=== PATIENT | female | born 1960 | race Two or more races ===

== ENCOUNTER 2018-02-12 14:06 | Outpatient (CLI) | payer OTHER ==
[~2018-02-12 14:06] MED LIST: DURICEF 500 MG CAPSULE PO; TRAM1TAB PO
== END 2018-02-12 14:10 | disposition home or self-care (01) ==
LOC: LAB 14:06
DX: D69.49 Other primary thrombocytopenia (principal); D51.3 Other dietary vitamin B12 deficiency anemia; E78.2 Mixed hyperlipidemia; E03.8 Other specified hypothyroidism; M81.0 Age-related osteoporosis without current pathological fracture; I10 Essential (primary) hypertension

== ENCOUNTER 2018-06-29 06:28 | Outpatient (CLI) | payer OTHER | END 2018-06-29 06:49 | disposition home or self-care (01) | LOC: LAB 06:28 | DX: D69.49 Other primary thrombocytopenia (principal); D51.1 Vitamin B12 deficiency anemia due to selective vitamin B12 malabsorption with proteinuria; E06.3 Autoimmune thyroiditis; M81.0 Age-related osteoporosis without current pathological fracture; E78.2 Mixed hyperlipidemia; E03.8 Other specified hypothyroidism; I10 Essential (primary) hypertension; D50.8 Other iron deficiency anemias; D51.8 Other vitamin B12 deficiency anemias ==

== ENCOUNTER 2018-09-20 06:40 | Outpatient (CLI) | payer OTHER | END 2018-09-20 06:45 | disposition home or self-care (01) | LOC: LAB 06:40 | DX: D69.49 Other primary thrombocytopenia (principal); D51.1 Vitamin B12 deficiency anemia due to selective vitamin B12 malabsorption with proteinuria; D51.3 Other dietary vitamin B12 deficiency anemia; E06.3 Autoimmune thyroiditis; M81.0 Age-related osteoporosis without current pathological fracture; E78.2 Mixed hyperlipidemia; E03.8 Other specified hypothyroidism; I10 Essential (primary) hypertension ==

== ENCOUNTER 2020-10-19 08:31 | Outpatient (CLI) | payer OTHER | END 2020-10-19 10:03 | disposition home or self-care (01) | LOC: SONOGRAMA 08:31 | PROVIDERS: ATTEND Pathology Anatomic Pathology & Clinical Pathology | DX: D11.0 Benign neoplasm of parotid gland (principal) ==

== ENCOUNTER 2020-11-11 06:56 | Outpatient (CLI) | payer OTHER | END 2020-11-11 07:06 | disposition home or self-care (01) | LOC: LAB 06:56 | PROVIDERS: ATTEND Internal Medicine Hematology & Oncology | DX: D11.0 Benign neoplasm of parotid gland (principal); D50.8 Other iron deficiency anemias; I10 Essential (primary) hypertension; R74.02 Elevation of levels of lactic acid dehydrogenase [LDH]; K76.89 Other specified diseases of liver; D68.8 Other specified coagulation defects; C85.11 Unspecified B-cell lymphoma, lymph nodes of head, face, and neck; D69.49 Other primary thrombocytopenia; D51.1 Vitamin B12 deficiency anemia due to selective vitamin B12 malabsorption with proteinuria; D51.3 Other dietary vitamin B12 deficiency anemia; E06.3 Autoimmune thyroiditis; M81.0 Age-related osteoporosis without current pathological fracture; E78.2 Mixed hyperlipidemia; E03.8 Other specified hypothyroidism; H60.311 Diffuse otitis externa, right ear; H66.91 Otitis media, unspecified, right ear ==

== ENCOUNTER 2021-01-14 05:15 | Day surgery (SDC) | payer OTHER ==
[~2021-01-14 05:15] MED LIST changes: +ALTACE5 MG PO; +LIPITOR40 MG PO; +SYNTHROID88 MCG PO
== END 2021-01-14 13:30 | disposition home or self-care (01) ==
LOC: CIR.AMB 05:15
PROVIDERS: ATTEND Specialist
DX: C85.91 Non-Hodgkin lymphoma, unspecified, lymph nodes of head, face, and neck (principal); Z20.822 Contact with and (suspected) exposure to COVID-19
CPT/HCPCS: 36561; C1751

== ENCOUNTER 2021-06-05 07:15 | Outpatient (CLI) | payer OTHER | END 2021-06-05 07:22 | disposition home or self-care (01) | LOC: LAB 07:15 | PROVIDERS: ATTEND Internal Medicine Hematology & Oncology | DX: D50.8 Other iron deficiency anemias (principal); I10 Essential (primary) hypertension ==

== ENCOUNTER 2023-03-20 06:07 | Day surgery (SDC) | payer OTHER | END 2023-03-20 11:45 | disposition home or self-care (01) | LOC: AMB-ENDOS 06:07 | PROVIDERS: ATTEND Internal Medicine Gastroenterology | DX: D12.3 Benign neoplasm of transverse colon (principal); K64.8 Other hemorrhoids; Z20.822 Contact with and (suspected) exposure to COVID-19 ==

== ENCOUNTER 2024-04-03 09:45 | Outpatient (CLI) | payer OTHER ==
[~2024-04-03 09:45] MED LIST changes: +ADULT LOW DOSE81 M1; +CRESTOR40 MG; +TOPROL XL25 M1
[2024-04-03 11:03] LABS: HEMATOCRIT 40.3 % (36.0-45.00); MEAN CELL VOLUME 92.4 fL (80.00-100.00); MEAN CORPUSCULAR HEMOGLOBIN 32.1 pg (27.00-32.0); MEAN CORPUSCULAR HGB CONC 34.7 g/dl (32.0-36.0); RED BLOOD COUNT 4.36 M/uL (4.00-6.00); RED CELL DISTRIBUTION WIDTH 13.4 % (11.5-14.5)
[2024-04-03 11:04] LABS: PLATELET COUNT 115 K/uL (150-450)
[2024-04-03 11:43] LABS: % SATURACION 32.1 % (15-50); ALBUMIN 4.3 gm/dL (3.4-5.0); BILIRUBIN TOTAL 1.26 mg/dL (0.3-1.2); CALCIUM 9.6 mg/dL (8.5-10.1); CREATININE SERUM 0.63 mg/dL (0.55-1.02); GFR 94.84; GLOBULINA 2.5 G/DL (2.4-3.5); POTASSIUM 3.9 mEq/L (3.5-5.1); TOTAL PROTEIN 6.8 gm/dL (6.4-8.2)
[2024-04-04 12:27] LABS: FOLIC ACID > 20.00 ng/ml (4.78-20)
[2024-04-05 12:06] LABS: CA 125 5.4 U/mL (0.0-38.1); CA 15-3 24.8 U/mL (0.0-25.0)
== END 2024-04-03 09:51 | disposition home or self-care (01) ==
LOC: LAB 09:45
PROVIDERS: ATTEND Internal Medicine Hematology & Oncology
DX: C85.11 Unspecified B-cell lymphoma, lymph nodes of head, face, and neck (principal); D69.49 Other primary thrombocytopenia; D51.1 Vitamin B12 deficiency anemia due to selective vitamin B12 malabsorption with proteinuria; D51.3 Other dietary vitamin B12 deficiency anemia; E06.3 Autoimmune thyroiditis; M81.0 Age-related osteoporosis without current pathological fracture; E78.2 Mixed hyperlipidemia; E03.8 Other specified hypothyroidism; I10 Essential (primary) hypertension; H60.311 Diffuse otitis externa, right ear; H66.91 Otitis media, unspecified, right ear; D11.0 Benign neoplasm of parotid gland; Z86.16 Personal history of COVID-19; D50.8 Other iron deficiency anemias; R74.02 Elevation of levels of lactic acid dehydrogenase [LDH]; K76.89 Other specified diseases of liver; C50.919 Malignant neoplasm of unspecified site of unspecified female breast; C56.9 Malignant neoplasm of unspecified ovary; R97.8 Other abnormal tumor markers

== ENCOUNTER 2024-10-03 09:53 | Outpatient (CLI) | payer OTHER ==
[2024-10-03 11:17] LABS: HEMATOCRIT 41.5 % (36.0-45.00); HEMOGLOBIN 13.8 g/dL (12.0-15.00); MEAN CELL VOLUME 93.4 fL (80.00-100.00); MEAN CORPUSCULAR HEMOGLOBIN 31.1 pg (27.00-32.0); MEAN CORPUSCULAR HGB CONC 33.3 g/dl (32.0-36.0); RED BLOOD COUNT 4.44 M/uL (4.00-6.00); RED CELL DISTRIBUTION WIDTH 12.2 % (11.5-14.5)
[2024-10-03 11:23] LABS: PLATELET COUNT 111 K/uL (150-450)
[2024-10-03 12:07] LABS: % SATURACION 32.3 % (15-50); BILIRUBIN TOTAL 1.13 mg/dL (0.3-1.2); CALCIUM 9.1 mg/dL (8.5-10.1); CREATININE SERUM 0.54 mg/dL (0.55-1.02); FERRITIN 139.8 NG/ML (8-252); GFR 112.95; GLOBULINA 2.7 G/DL (2.4-3.5); POTASSIUM 3.58 mEq/L (3.5-5.1); TOTAL PROTEIN 6.7 gm/dL (6.4-8.2)
[2024-10-03 12:09] LABS: URIC ACID 2.7 mg/dL (2.5-7.5)
[2024-10-03 13:16] LABS: FOLIC ACID > 20.00 ng/ml (4.78-20)
[2024-10-03 14:03] LABS: MANUAL PLATELET COUNT 164
[2024-10-03 14:04] LABS: PLATELET ESTIMATE NORMAL (NORMAL)
[2024-10-04 10:09] LABS: CA 125 5.8 U/mL (0.0-38.1); CA 15-3 22.2 U/mL (0.0-25.0)
== END 2024-10-03 09:54 | disposition home or self-care (01) ==
LOC: LAB 09:53
PROVIDERS: ATTEND Internal Medicine Hematology & Oncology
DX: Z12.11 Encounter for screening for malignant neoplasm of colon (principal); M25.30 Other instability, unspecified joint; D50.8 Other iron deficiency anemias; R79.9 Abnormal finding of blood chemistry, unspecified; I10 Essential (primary) hypertension; R74.02 Elevation of levels of lactic acid dehydrogenase [LDH]; K76.89 Other specified diseases of liver; E55.9 Vitamin D deficiency, unspecified; C50.919 Malignant neoplasm of unspecified site of unspecified female breast; R97.8 Other abnormal tumor markers; C56.9 Malignant neoplasm of unspecified ovary; R97.1 Elevated cancer antigen 125 [CA 125]; R97.0 Elevated carcinoembryonic antigen [CEA]; C85.11 Unspecified B-cell lymphoma, lymph nodes of head, face, and neck; D69.49 Other primary thrombocytopenia; D51.1 Vitamin B12 deficiency anemia due to selective vitamin B12 malabsorption with proteinuria; D51.3 Other dietary vitamin B12 deficiency anemia; E06.3 Autoimmune thyroiditis; M81.0 Age-related osteoporosis without current pathological fracture; E78.2 Mixed hyperlipidemia; E03.8 Other specified hypothyroidism; H60.311 Diffuse otitis externa, right ear; H66.91 Otitis media, unspecified, right ear; D11.0 Benign neoplasm of parotid gland; Z86.16 Personal history of COVID-19

== ENCOUNTER → 2024-10-04 12:05 | Outpatient (CLI) | payer OTHER ==
[2024-10-04 13:19] LABS: ob POSITIVE (NEGATIVE)
== END | disposition home or self-care (01) ==
LOC: LAB 12:05
PROVIDERS: ATTEND General Practice
DX: M25.30 Other instability, unspecified joint (principal); Z12.11 Encounter for screening for malignant neoplasm of colon

== ENCOUNTER 2025-04-10 09:26 | Outpatient (CLI) | payer OTHER ==
[2025-04-10 10:13] LABS: BASO % 0.5 % (0.1-1.2); EOS # 0.09 (0.04-0.54); EOS % 2.2 % (0.7-7.0); LYMPH # 1.10 (1.18-3.74); LYMPH % 26.9 % (19.3-53.1); MEAN PLATELET VOLUME 10.60 fl (9.4-12.4); MONO # 0.44 (0.24-0.82); MONO % 10.8 % (4.7-12.5); NEUT # 2.43 (1.56-6.13); NEUT % 59.4 % (34.0-71.1); RED CELL DISTRIBUTION WIDTH 11.9 % (11.6-14.4)
[2025-04-10 10:47] LABS: % SATURACION 39.8 % (15-50); ALT/SGPT 25.0 U/L (12-78); AST/SGOT 24.0 U/L (15-37); BILIRUBIN TOTAL 1.45 mg/dL (0.3-1.2); BUN CREA RATIO 20.0 (7.0-25.0); CHOL HDL RATIO 1.9 (0-5.0); CREATININE SERUM 0.6 mg/dL (0.55-1.02); FE 110.0 ug/dl (50-170); GFR 100.02; GLOBULINA 3.1 G/DL (2.4-3.5); GLUCOSE FASTING 84.0 mg/dL (65-100); HDL 93.0 mg/dl (40-60); LDH 174.0 U/L (84-246); LDL 70.0 mg/dl (0-130); OSMOLALITY SERUM 284.0 MOSM/KG (275-295); TSH 1.84 uIU/mL (0.358-3.74); VLDL 12.0 (0-39)
[2025-04-10 11:55] LABS: FOLIC ACID > 20.00 ng/ml (4.78-20); VITAMIN D3 25 HYDROXY 74.24 ng/ml (30-120)
[2025-04-11 09:08] LABS: CA 125 8.4 U/mL (0.0-38.1); CA 15-3 23.1 U/mL (0.0-25.0)
== END 2025-04-10 09:38 | disposition home or self-care (01) ==
LOC: LAB 09:26
PROVIDERS: ATTEND Internal Medicine Hematology & Oncology
DX: D50.8 Other iron deficiency anemias (principal); R79.9 Abnormal finding of blood chemistry, unspecified; I10 Essential (primary) hypertension; R74.02 Elevation of levels of lactic acid dehydrogenase [LDH]; K76.89 Other specified diseases of liver; E55.9 Vitamin D deficiency, unspecified; Z13.29 Encounter for screening for other suspected endocrine disorder; C50.919 Malignant neoplasm of unspecified site of unspecified female breast; R97.8 Other abnormal tumor markers; C56.9 Malignant neoplasm of unspecified ovary; R97.1 Elevated cancer antigen 125 [CA 125]; R97.0 Elevated carcinoembryonic antigen [CEA]; C85.11 Unspecified B-cell lymphoma, lymph nodes of head, face, and neck; D69.49 Other primary thrombocytopenia; D51.1 Vitamin B12 deficiency anemia due to selective vitamin B12 malabsorption with proteinuria; R19.5 Other fecal abnormalities; D51.3 Other dietary vitamin B12 deficiency anemia; E06.3 Autoimmune thyroiditis; M81.0 Age-related osteoporosis without current pathological fracture; E78.2 Mixed hyperlipidemia; E03.8 Other specified hypothyroidism; H60.311 Diffuse otitis externa, right ear; H66.91 Otitis media, unspecified, right ear; D11.0 Benign neoplasm of parotid gland; Z86.16 Personal history of COVID-19; E78.5 Hyperlipidemia, unspecified; E03.9 Hypothyroidism, unspecified; R73.01 Impaired fasting glucose